=== PATIENT | female | born 1950 | race Caucasian/White ===

== ENCOUNTER 2020-02-16 11:25 | Outpatient (CLI) | payer MEDICARE, OTHER, SELFPAY ==
--- NOTE | 2020-02-16 11:34 | CT_ITS ---
WS: [id number] CT ABDOMEN AND PELVIS WITH CONTRAST HISTORY: GENERALIZED ABD PAIN TECHNIQUE: Imaging performed of the abdomen and pelvis with IV contrast. Single phase imaging of the abdomen. Coronal and sagittal reformats are submitted. All CT scans at [facility] use at least one of these dose optimization techniques: automated exposure control; mA and/or kV adjustment per patient size (includes targeted exams where dose is matched to clinical indication); or iterativ e reconstruction. IV CONTRAST: Omnipaque 300; 95 mL IV. Oral contrast: Yes. DLP: 1044.37 mGycm COMPARISON: None available. Lower thorax: Lung bases are clear. Heart is normal size. Small hiatal hernia. Distal esophagus conta ins oral contrast from reflux disease. Liver/biliary system: Normal size liver with numerous hepatic cysts of various sizes. The largest cys t towards the RIGHT diaphragmatic surface measures 4.7 x 3.6 cm. No bile duct dilatation. Normal port al vein. Gallbladder: Normal. No gallstones or wall thickening. No pericholecystic fluid. Pancreas: Normal. Spleen: Normal. Adrenal glands: Normal RIGHT adrenal gland. LEFT adrenal gland is not well visualized. Right kidney: Normal size with a few small to characterize hypodensities. No obstruction. Left kidney: Normal size with a few scattered hypodensities which are too small to characterize. Aorta: Mild atherosclerosis with no aneurysm. Lymphadenopathy: None. Free fluid: None. GI tract: The appendix is not identified. Mild diffuse fecal retention and constipation. Abdominal wall: Unremarkable abdominal wall. No hernia. Pelvis: Prior hysterectomy. No free fluid or adenopathy. Bones: L5 anterolisthesis by 9 mm and bilateral L5 pars defects. CT/CT abdomen pelvis w con* [id number] IMPRESSION: 1. No acute abdominal or pelvic abnormalities are identified. 2. Hepatic cysts. 3. Diffuse mild constipation. No free fluid or adenopathy. 4. L5 grade 2 spondylolisthesis and spondylolysis.
[2020-02-16] MEDS: iohexol 300 mg/mL 100 mL Btl IV (13:07)
[2020-02-16] MEDS: iohexol 300 mg/mL 50 mL Btl PO (13:08)
== END 2020-02-16 11:26 | disposition home or self-care (01) ==
LOC: RADWPI 11:33
PROVIDERS: Family Provider Family Medicine; PCP Family Medicine; Visit Provider Family Medicine
DX: R10.84 Generalized abdominal pain (principal); K76.89 Other specified diseases of liver; K59.00 Constipation, unspecified; M43.16 Spondylolisthesis, lumbar region; M47.816 Spondylosis without myelopathy or radiculopathy, lumbar region
CPT/HCPCS: 74177; Q9967

== ENCOUNTER 2020-03-31 09:52 | Outpatient (CLI) | payer MEDICARE, OTHER, SELFPAY ==
--- NOTE | 2020-03-31 10:00 | MM_ITS ---
WS: [id number] Bilateral screening digital mammogram, 03/31/2020 Clinical Data: SCREENING Comparison: 02/18/2016, 03/06/2013, 07/18/2011, 08/31/2009, 06/23/2008, 04/04/2007, 04/05/2006. Findings: The breast parenchymal pattern shows heterogeneous density No spiculated masses or clustered calcific ations are seen. There are no secondary signs of carcinoma. There are unchanged bilateral benign calc ifications. There are small lymph nodes in both axilla. MM/[place] [id number] Impression: 1. Negative bilateral mammogram unchanged. 2. Recommend annual screening mammograms. BIRADS: 1-Negative FOLLOW UP: 1 Year Follow-up The CAD food checkers and cashiers supervisor was used.
== END 2020-03-31 09:53 | disposition home or self-care (01) ==
LOC: RADSHAW 09:56
PROVIDERS: Family Provider Family Medicine; PCP Family Medicine; Visit Provider Family Medicine
DX: Z12.31 Encounter for screening mammogram for malignant neoplasm of breast (principal)
CPT/HCPCS: 77067

== ENCOUNTER → 2021-02-15 14:28 | Outpatient (BNVA) | payer MEDICARE, OTHER, SELFPAY | PROVIDERS: Family Provider Family Medicine; PCP Family Medicine; Visit Provider Family Medicine | DX: Z13.6 Encounter for screening for cardiovascular disorders (principal); Z12.11 Encounter for screening for malignant neoplasm of colon | CPT/HCPCS: 80053; 80061; 84443; 85025 ==

== ENCOUNTER → 2021-02-22 16:21 | Outpatient (BNVA) | payer MEDICARE, OTHER, SELFPAY | PROVIDERS: Family Provider Family Medicine; PCP Family Medicine; Visit Provider Nurse Practitioner Family | DX: Z20.822 Contact with and (suspected) exposure to COVID-19 (principal); J06.9 Acute upper respiratory infection, unspecified | CPT/HCPCS: 87635 ==

== ENCOUNTER 2021-03-23 13:51 | Outpatient (CLI) | payer MEDICARE, OTHER, SELFPAY ==
--- NOTE | 2021-03-23 14:15 | XR_ITS ---
WS: [id number] SCREENING DEXA SCAN [employer] CLINICAL INFORMATION: post menopausal COMPARISON: None. FINDINGS: The L1-L4 bone mineral density measures 0.843 g/cm2. This corresponds to a T score score of -2.8 and Z score of -0.9. Left femoral neck bone mineral density measures 0.796 g/cm2. This corresponds to a T score of -1.7 an d Z score of 0.0. Right femoral neck bone mineral density measures 0.811 g/cm2. This corresponds to a T score -1.6of an d Z score of 0.2. Mean femoral neck bone mineral density measures 0.803 g/cm2. This corresponds to a T score of -1.6 an d Z score of 0.1. XR/XR DEXA axial skeleton* [id number] IMPRESSION: Osteoporosis lumbar spine. Osteopenia femoral necks. Patient's FRAX calculated 10 year probability for major osteoporotic fracture i s 10.7 % and osteoporotic hip fracture is 2.0%.
== END 2021-03-23 13:52 | disposition home or self-care (01) ==
LOC: RADWPI 13:56
PROVIDERS: PCP Family Medicine; Visit Provider Family Medicine
DX: Z78.0 Asymptomatic menopausal state (principal); M81.0 Age-related osteoporosis without current pathological fracture; M85.88 Other specified disorders of bone density and structure, other site
CPT/HCPCS: 77080

== ENCOUNTER → 2021-04-11 08:18 | Outpatient (BNVA) | payer MEDICARE, OTHER, SELFPAY | PROVIDERS: PCP Family Medicine; Visit Provider Surgery | DX: Z11.52 Encounter for screening for COVID-19 (principal) | CPT/HCPCS: 87635 ==

== ENCOUNTER 2021-04-14 09:26 | Day surgery (SDC) | payer MEDICARE, OTHER, SELFPAY ==
--- NOTE | 2021-04-14 10:25 | ANES.PREANE2 ---
Pre-Anesthetic Assessment Pre-Anesthetic Assessment: Height/Weight: Height 1.59 m Preop Diagnosis: diagnostic Proposed Procedure: Operation Date: 04/14/21 11:00 Proposed Procedures p EGD 75902 K21.9(Not Applicable) - Marc Hastings MD s Colonoscopy 42722 Z12.11(Not Applicable) - Marc Hastings MD Was Beta Anabel taken within 24 hours: N/A Was Clonidine taken within 24 hours: N/A Social: Social History: No alcohol and No tobacco Exam: Pre-Anes Outpt Exam: alert, oriented x 3, clear to auscultation bilaterally and regular rate & rhythm Airway: Submandibular: WNL Cervical ROM: WNL MP: 2 Dentition: Full Pulmonary: Pulmonary: Asthma GI: GI: GERD Anesthetic Plan: ASA status: 2 Anesthesia: MAC Risk of > 500 ml blood loss (7ml/kg in children): No PFSH Anesthesia PFSH: Medical History (Updated 03/08/21 @ 18:06 by Marc Hastings MD) Bronchiectasis Followed by pulm in [place]. GERD (gastroesophageal reflux disease) Osteoporosis She was on Fosomax for 10 years Surgical History H/O eye surgery Bilateral - for narrow angle glaucoma H/O umbilical hernia repair H/O: hysterectomy Partial - not due to cancer History of tonsillectomy History of tubal ligation Family History Father Stroke Lung disease Cancer Family/Other Cancer stomach and colon Family/Other Cancer colon Family/Other Cancer esophageal Mother Dementia CHF (congestive heart failure) Hypothyroidism Family/Other Cancer breast cancer Family/Other Cancer colon Family/Other Cancer ovarian cancer Family/Other Rheumatic fever Social History Second hand smoke exposure: No (had been around smoke until 29) Alcohol intake: never Adopted: No Caregiver/support person: No Lives independently: Yes Household members: none Housing: House Marital status: / Number of children: 2 Highest education level completed: GED or Equivalent service: No Current occupational status: retired Pets and animals: No History of recent travel: No Sexually active: No Current gender identity: Female Special niraj needs: No Data Anesthesia Cardiac Studies: No Data to Display
[2021-04-14 10:32] VITALS: BMI 23.6
[2021-04-14] MEDS: sodium chloride 0.9% 1,000 ML 30 ML IV (10:44)
--- NOTE | 2021-04-14 11:17 | W.PM.OPSFHP ---
Same Day Surgery H&P Indication for Procedure/HPI DATE OF PROCEDURE: April 14, 2021 CHIEF COMPLAINT/INDICATIONFOR SURGICAL PROCEDURE: egd/colonoscopy PREOP DIAGNOSIS: diagnostic PLANNED PROCEDRUE: Operation Date: 04/14/21 11:00 Proposed Procedures p EGD 23026 K21.9(Not Applicable) - Marc Hastings MD s Colonoscopy 03511 Z12.11(Not Applicable) - Marc Hastings MD Medications/Allergies* Home Medications Medication Instructions Recorded Confirmed Type azithromycin 250 mg tablet See Rx Instructions PO DAILY 02/15/21 04/14/21 History fluticasone fur. 100 mcg-umeclid 1 inh INHALATION DAILY 02/15/21 04/14/21 History 62.5 mcg-vilant 25 mcg inhalat.powder ipratropium 0.5 mg-albuterol 3 mg 3 ml INHALATION QID PRN 02/15/21 04/14/21 History (2.5 mg base)/3 mL nebulization soln multivitamin 1 tab PO DAILY 02/15/21 04/14/21 History lansoprazole [Prevacid] 15 mg PO DAILY 04/14/21 04/14/21 History Allergies/Adverse Reactions Allergy/AdvReac Type Severity Reaction Status Date / Time naproxen [From Naprosyn] Allergy rash Verified 04/14/21 10:26 Sulfa (Sulfonamide Allergy rash Verified 04/14/21 10:26 Antibiotics) Current Medications: Generic Name Dose Route Start Last Admin Trade Name Freq PRN Reason Stop Dose Admin Sodium Chloride 1,000 mls @ 30 mls/hr 04/14/21 10:00 04/14/21 10:44 Sodium Chloride 0.9% IV 04/15/21 09:59 30 mls/hr .Q24H LORA Administration Pertinent History/Comorbid Conditions* Medical History (Updated 03/08/21 @ 18:06 by Marc Hastings MD) Bronchiectasis Followed by pulm in [place]. GERD (gastroesophageal reflux disease) Osteoporosis She was on Fosomax for 10 years Surgical History (Updated 02/15/21 @ 13:58 by Mary Sultana DO) H/O eye surgery Bilateral - for narrow angle glaucoma H/O umbilical hernia repair H/O: hysterectomy Partial - not due to cancer History of tonsillectomy History of tubal ligation Family History (Updated 10/19/21 @ 13:37 by Lisa Milan LPN) Family/Other Family/Other Father CHF (congestive heart failure) Mother Dementia Mother Hypothyroidism Mother Rheumatic fever Family/Other Lung disease Father Cancer Father Family/Other stomach and colon Family/Other colon Family/Other esophageal Family/Other breast cancer Family/Other colon Family/Other ovarian cancer Stroke Father Social History Second hand smoke exposure: No (had been around smoke until 29) Alcohol intake: never Adopted: No Caregiver/support person: No Lives independently: Yes Household members: none Housing: House Marital status: / Number of children: 2 Highest education level completed: GED or Equivalent service: No Current occupational status: retired Pets and animals: No History of recent travel: No Sexually active: No Current gender identity: Female Special niraj needs: No Pertinent Exam Findings alert, oriented x 3 and regular rate & rhythm Recommendations Surgery/Procedure today Coding Level of Care Code Acute Professor Of Biblical Studies for Bouchra Anderson
[2021-04-14 11:47] VITALS: BP 85/52; PULSE 61; RESP 18; TEMP 36.1; O2SAT 97
[2021-04-14 12:05] VITALS: BP 101/69; PULSE 65; RESP 18; O2SAT 98
--- NOTE | 2021-04-14 14:11 | ANE.PACU2 ---
Inpatient post-anesthesia follow up: Airway intact: Yes Vital signs: Temperature 97 F Pulse Rate 65 Respiratory Rate 18 Blood Pressure 101/69 Pulse Oximetry 98 Oxygen Delivery Me thod Room Air Oxygen Flow Rate 3 Fraction of Inspir ed Oxygen Hydration adequate: Yes Nausea and vomiting: No Pain level: 1 Mental status: Baseline
== END 2021-04-14 12:37 | disposition home or self-care (01) ==
PROVIDERS: PCP Family Medicine; Visit Provider Surgery
PROC: 0DJ08ZZ Inspection of Upper Intestinal Tract, Via Natural or Artificial Opening Endoscopic (ICD-10-PCS; CPT 43235; principal; 2021-04-14 11:00)
PROC: 0DJD8ZZ Inspection of Lower Intestinal Tract, Via Natural or Artificial Opening Endoscopic (ICD-10-PCS; CPT 45378; 2021-04-14 11:00)
DX: Z12.11 Encounter for screening for malignant neoplasm of colon (principal); K21.9 Gastro-esophageal reflux disease without esophagitis; K57.30 Diverticulosis of large intestine without perforation or abscess without bleeding; K64.8 Other hemorrhoids; M81.0 Age-related osteoporosis without current pathological fracture; Z82.49 Family history of ischemic heart disease and other diseases of the circulatory system; Z82.3 Family history of stroke; J45.909 Unspecified asthma, uncomplicated
CPT/HCPCS: 43239; 88305; 96360; G0121; J2704; J7030

== ENCOUNTER 2021-05-31 14:42 | Outpatient (CLI) | payer MEDICARE, OTHER, SELFPAY ==
--- NOTE | 2021-05-31 14:53 | MM_ITS ---
WS: [id number] SCREENING DIGITAL MAMMOGRAM WITH CAD HISTORY: SCREENING COMPARISON: 07/18/2011, 03/31/2020 and 02/18/2016 Bilateral CC and MLO views submitted. Computer aided detection analyzed. Breast composition: The breasts are heterogeneously dense, which may obscure small masses. Mild archi tectural distortion in the anterior medial RIGHT breast seen on the CC projection. Not definitely see n on the lateral projection. There are dense calcifications within each breast. MM/[place] [id number] IMPRESSION: BI-RADS: 0-Incomplete: Need additional imaging evaluation FOLLOW UP: Need Additional Imaging RIGHT breast: Spot compression views (CC and MLO). True ML. Ultrasound to follo w if abnormality persists.
== END 2021-05-31 14:43 | disposition home or self-care (01) ==
LOC: RADSHAW 14:53
PROVIDERS: PCP Family Medicine; Visit Provider Family Medicine
DX: Z12.31 Encounter for screening mammogram for malignant neoplasm of breast (principal)
CPT/HCPCS: 77067

== ENCOUNTER 2021-06-21 08:18 | Outpatient (CLI) | payer MEDICARE, OTHER, SELFPAY ==
--- NOTE | 2021-06-21 08:35 | US_ITS ---
WS: [id number] ADDITIONAL VIEWS RIGHT BREAST RIGHT breast ultrasound, limited. HISTORY: ABNORMAL MAMMO COMPARISON: 05/31/2021, 2019, 02/18/2016 Compression views right CC and MLO projection. True ML also submitted. The asymmetry and architectural distortion in the anterior RIGHT breast improves with better compress ion. There are benign calcifications present. The fibroglandular tissue is dense in the anterior tamera st. Ultrasound will be performed to confirm there is no underlying abnormality. RIGHT breast ultrasound, limited. No mass or distortion. No solid or cystic mass. There is a benign calcification with shadowing noted at 12:00. US/US breast RT limited* [id number] IMPRESSION: BI-RADS: 2-Benign FOLLOW-UP: 1 Year Follow-up
== END 2021-06-21 08:19 | disposition home or self-care (01) ==
LOC: RADSHAW 08:26
PROVIDERS: PCP Family Medicine; Visit Provider Family Medicine
DX: R92.8 Other abnormal and inconclusive findings on diagnostic imaging of breast (principal)
CPT/HCPCS: 76642; 77065

== ENCOUNTER → 2022-02-17 15:16 | Outpatient (BNVA) | payer MEDICARE, OTHER, SELFPAY | PROVIDERS: PCP Family Medicine; Visit Provider Family Medicine | DX: R53.83 Other fatigue (principal); F32.1 Major depressive disorder, single episode, moderate; Z13.6 Encounter for screening for cardiovascular disorders | CPT/HCPCS: 80053; 80061; 84443; 85025 ==

== ENCOUNTER → 2022-05-09 14:10 | Outpatient (BNVA) | payer MEDICARE, OTHER, SELFPAY | PROVIDERS: PCP Family Medicine; Visit Provider Nurse Practitioner | DX: N39.0 Urinary tract infection, site not specified (principal); R35.0 Frequency of micturition | CPT/HCPCS: 81000 ==

== ENCOUNTER 2022-06-28 10:34 | Outpatient (CLI) | payer MEDICARE, OTHER, SELFPAY ==
--- NOTE | 2022-06-28 10:44 | MM_ITS ---
WS: [id number] BILATERAL SCREENING DIGITAL TOMOSYNTHESIS MAMMOGRAM WITH CAD HISTORY: SCREENING COMPARISON: 06/21/2021, 05/31/2021, 03/31/2020 Bilateral CC and MLO views with tomosynthesis and synthetic mammography submitted. Computer aided det ection analyzed. Breast composition: The breasts are heterogeneously dense, which may obscure small masses. No suspici ous masses, microcalcifications or architectural distortion. Dense coarse calcifications within each breast. MM/[place] [id number] IMPRESSION: BI-RADS: 2-Benign FOLLOW UP: 1 Year Follow-up
== END 2022-06-28 10:35 | disposition home or self-care (01) ==
LOC: RAD 10:39
PROVIDERS: PCP Family Medicine; Visit Provider Family Medicine
DX: Z12.31 Encounter for screening mammogram for malignant neoplasm of breast (principal)
CPT/HCPCS: 77063; 77067

== ENCOUNTER → 2022-07-17 10:08 | Outpatient (BNVA) | payer MEDICARE, OTHER, SELFPAY | PROVIDERS: PCP Family Medicine; Visit Provider Internal Medicine Pulmonary Disease | DX: J47.9 Bronchiectasis, uncomplicated (principal); B44.81 Allergic bronchopulmonary aspergillosis; R05.8 Other specified cough | CPT/HCPCS: 71046; 99204 ==

== ENCOUNTER 2022-07-18 09:41 | Outpatient (CLI) | payer MEDICARE, OTHER, SELFPAY | END 2022-07-18 09:42 | disposition home or self-care (01) | LOC: LAB 09:44 | PROVIDERS: PCP Family Medicine; Visit Provider Internal Medicine Pulmonary Disease | DX: R05.8 Other specified cough (principal) | CPT/HCPCS: 87070 ==

== ENCOUNTER 2022-07-18 12:00 | Outpatient (CLI) | payer MEDICARE, OTHER, SELFPAY ==
--- NOTE | 2022-07-18 12:12 | XR_ITS ---
WS: [id number] EXAMINATION: XR hand LT min 3V* [id number] REASON FOR EXAM: nodule on palmar surface of left hand COMPARISON: None available. ORDER DATE: 07/18/2022 12:12 PM FINDINGS: There is generalized joint space narrowing. Additionally there may be some chronic degenerative later al subluxation at the first carpometacarpal articulation This indicates degenerative joint and-or cho ndral changes. Juxta articular marginal osteophytes are present. There are no acute fractures or dis locations. A soft tissue nodule cannot be clearly defined with the history suggests the possibility o f Dupuytren's contracture which is a clinical/physical examination diagnosis. XR/XR hand LT min 3V* [id number] IMPRESSION: DIFFUSE OSTEOARTHRITIS.
== END 2022-07-18 12:01 | disposition home or self-care (01) ==
LOC: RAD 12:04
PROVIDERS: PCP Family Medicine; Visit Provider Family Medicine
DX: R22.32 Localized swelling, mass and lump, left upper limb (principal); M19.042 Primary osteoarthritis, left hand
CPT/HCPCS: 73130

== ENCOUNTER 2022-08-10 12:43 | Outpatient (CLI) | payer MEDICARE, OTHER, SELFPAY ==
[2022-08-10 13:03] VITALS: PULSE 67; RESP 18; O2SAT 98
[2022-08-10] MEDS: albuterol 2.5 mg/3 mL Neb INHALATION (13:03)
[2022-08-10 13:08] VITALS: PULSE 73
[2022-08-10 13:25] VITALS: BP 117/62; BP 127/77
== END 2022-08-10 12:44 | disposition home or self-care (01) ==
LOC: RT 12:45
PROVIDERS: PCP Family Medicine; Visit Provider Internal Medicine Pulmonary Disease
DX: J47.9 Bronchiectasis, uncomplicated (principal)
CPT/HCPCS: 94060; 94618; 94726; 94729; J7613

== ENCOUNTER → 2022-08-14 10:45 | Outpatient (BNVA) | payer MEDICARE, OTHER, SELFPAY | PROVIDERS: PCP Family Medicine; Referring Provider Family Medicine; Visit Provider Student in an Organized Health Care Education/Training Program | DX: R22.32 Localized swelling, mass and lump, left upper limb (principal) | CPT/HCPCS: 99203 ==

== ENCOUNTER → 2022-08-28 14:53 | Outpatient (BNVA) | payer MEDICARE, OTHER, SELFPAY | PROVIDERS: PCP Family Medicine; Visit Provider Nurse Practitioner Family | DX: L81.4 Other melanin hyperpigmentation (principal); L57.8 Other skin changes due to chronic exposure to nonionizing radiation; S90.121A Contusion of right lesser toe(s) without damage to nail, initial encounter; X58.XXXA Exposure to other specified factors, initial encounter; D36.13 Benign neoplasm of peripheral nerves and autonomic nervous system of lower limb, including hip | CPT/HCPCS: 99213 ==

== ENCOUNTER → 2022-08-29 10:32 | Outpatient (BNVA) | payer MEDICARE, OTHER, SELFPAY | PROVIDERS: PCP Family Medicine; Visit Provider Surgery | DX: K41.90 Unilateral femoral hernia, without obstruction or gangrene, not specified as recurrent (principal) | CPT/HCPCS: 99203 ==

== ENCOUNTER → 2022-09-18 09:14 | Outpatient (BNVA) | payer MEDICARE, OTHER, SELFPAY | PROVIDERS: PCP Family Medicine; Visit Provider Internal Medicine Pulmonary Disease | DX: B44.81 Allergic bronchopulmonary aspergillosis (principal); R05.8 Other specified cough; J47.9 Bronchiectasis, uncomplicated; J30.2 Other seasonal allergic rhinitis | CPT/HCPCS: 99214 ==

== ENCOUNTER 2022-10-02 07:15 | Day surgery (SDC) | payer MEDICARE, OTHER, SELFPAY ==
[2022-09-29 08:15] VITALS: BMI 23.7
[2022-10-02] VITALS (17 sets, daily range): BP systolic 106–140; BP diastolic 58–74; PULSE 62–90; RESP 12–20; TEMP 36.2–36.7; O2SAT 91–100
[2022-10-02] MEDS: sodium chloride 0.9% 1,000 ML 30 ML IV (08:19)
--- NOTE | 2022-10-02 08:21 | ECG_ITS ---
[facility] Test Date: 2022-10-02 Pat Name: Ana Jama Department: Room: Gender: Female Saddle Cutter: : 1950 Requested By: Akiko Mann Order Number: [id number] Harlodo MD: Eze Rao M.D. Measurements Intervals [place] Rate: 53 P: 64 MD: 162 QRS: -28 QRSD: 94 T: 6 QT: 432 QTc: 409 Interpretive Statements SINUS BRADYCARDIA BORDERLINE LEFT AXIS DEVIATION [QRS AXIS < -20] No previous ECG available for comparison Electronically Signed On 10-02-2022 16:46:12 CDT by Eze Rao M.D. [email or web address], [id number]
--- NOTE | 2022-10-02 08:32 | P.HP_ITS ---
Providers/Chief Complaint Primary Care Provider: Mary Sultana DO Chief Complaint: 11154 K46.9 History of Present Illness Ana Jama is a 72 year old female here for laparoscopic repair of left inguinal hernia with mesh Medications/Allergies Home Medications Medication Instructions Recorded Confirmed Last Taken Type fluticasone fur. 100 mcg-umeclid 1 inh inhalation DAILY 02/15/21 10/02/22 09/30/22 History 62.5 mcg-vilant 25 mcg inhalat.powder (Trelegy Ellipta) multivitamin 1 tab PO DAILY 02/15/21 09/29/22 04/12/21 History cholecalciferol (vitamin D3) 125 125 mcg PO DAILY 30 days #30 caps 03/30/21 09/29/22 10/01/22 Rx mcg (5,000 unit) capsule triamcinolone acetonide 0.1 % 1 applic topical BID #80 grams 07/08/21 09/29/22 Unknown Rx topical ointment omeprazole 40 mg capsule,delayed See Rx Instructions .Route 07/05/22 09/29/22 Unknown Rx release .COMPLEX #90 caps albuterol sulfate 2.5 mg/3 mL 2.5 mg inhalation Q6H PRN 07/17/22 10/02/22 09/06/22 History (0.083 %) solution for nebulization shortness of breath or wheezing albuterol sulfate 90 mcg/actuation 2 puff inhalation Q6H PRN 07/17/22 09/29/22 10/02/22 06:00 History aerosol inhaler shortness of breath or wheezing azithromycin 250 mg tablet See Rx Instructions .Route .COMPLEX 07/17/22 09/29/22 09/25/22 History calcium carbonate 500 mg calcium 1,000 mg PO DAILY 07/17/22 09/29/22 10/01/22 History (1,250 mg) tablet (Calcium 500) cetirizine 10 mg tablet 10 mg PO DAILY PRN Allergy Symptoms 07/17/22 10/02/22 09/29/22 History sodium chloride 3 % for 4 ml inhalation BID #240 mL 07/17/22 09/29/22 Unknown Rx nebulization Allergies Allergy/AdvReac Type Severity Reaction Status Date / Time naproxen [From Naprosyn] Allergy rash Verified 09/18/22 09:19 Sulfa (Sulfonamide Allergy rash Verified 09/18/22 09:19 Antibiotics) PFSH Acute PFSH: Medical History ABPA (allergic bronchopulmonary aspergillosis) Bronchiectasis Followed by pulm in [place]. Family history of melanoma GERD (gastroesophageal reflux disease) Osteoporosis She was on Fosomax for 10 years Surgical History H/O esophagogastroduodenoscopy (04/14/21) H/O eye surgery Bilateral - for narrow angle glaucoma H/O umbilical hernia repair H/O: hysterectomy Partial - not due to cancer History of tonsillectomy History of tubal ligation Status post colonoscopy (04/14/21) Family History Father Stroke Lung disease Cancer Family/Other Cancer stomach and colon Family/Other Cancer colon Family/Other Cancer esophageal Mother Dementia CHF (congestive heart failure) Hypothyroidism Family/Other Cancer breast cancer Family/Other Cancer colon Family/Other Cancer ovarian cancer Family/Other Rheumatic fever Social History Smoking and tobacco status: never smoked Second hand smoke exposure: No (had been around smoke until 29) Alcohol intake: never Substance/Drug Use: never Adopted: No Caregiver/support person: No Lives independently: Yes Household members: none Housing: House Marital status: / Number of children: 2 Highest education level completed: GED or Equivalent service: No Current occupational status: retired Pets and animals: No Sexually active: No Do you think of yourself as: Straight/Heterosexual Current gender identity: Female Special niraj needs: No Vitals/I&O/Wt Last Vital Signs Temp 98.1 F 10/02/22 07:45 Pulse 70 10/02/22 07:45 Resp 18 10/02/22 07:45 BP 106/67 10/02/22 07:45 Pulse Ox 95 10/02/22 07:45 O2 Del Method Room Air 10/02/22 07:48 A&P Assessment and plan (1) Left femoral hernia without obstruction or gangrene: Plan Laparoscopic repair of left inguinal hernia with mesh Attestations Medical Necessity Statement*: Home Coding Level of Care Code Acute Code for Chg Fwd Diagnoses Left femoral hernia without obstruction or gangrene K41.90
--- NOTE | 2022-10-02 08:52 | ANES.PREANE2 ---
Pre-Anesthetic Assessment Height/Weight: Height 1.6 m Weight 60.781 kg Temp Pulse Resp BP Pulse Ox O2 Del Method 98.1 F 70 18 106/67 95 Room Air 10/02/22 07:45 10/02/22 07:45 10/02/22 07:45 10/02/22 07:45 10/02/22 07:45 10/02/22 07:48 Operation Date: 10/02/22 08:50 Proposed Procedures p lap left inguinal hernia with mesh 20338, K46.9(Left) - Mark Chappell DO Familial anesthetic complications: None Was Beta Anabel taken within 24 hours: N/A Was Clonidine taken within 24 hours: N/A Last intake: Intake Last Liquid Date 10/01/22 Last Liquid Time 21:30 Last Solid Date 10/01/22 Last Solid Time 22:00 Social No alcohol and No tobacco Exam alert, oriented x 3, clear to auscultation bilaterally and regular rate & rhythm Airway Mallampati: Class III Dentition: other (bad dentition (they break easily)) Pulmonary Asthma (mild) bronchiectasis (ABPA) GI Gastroesophageal Reflux Disease Anesthetic Plan ASA status: 3 Anesthesia: General Risk of > 500 ml blood loss (7ml/kg in children): No Medications/Allergies Home Medications Medication Instructions Recorded Confirmed Last Taken Type fluticasone fur. 100 mcg-umeclid 1 inh inhalation DAILY 02/15/21 10/02/22 09/30/22 History 62.5 mcg-vilant 25 mcg inhalat.powder (Trelegy Ellipta) multivitamin 1 tab PO DAILY 02/15/21 09/29/22 04/12/21 History cholecalciferol (vitamin D3) 125 125 mcg PO DAILY 30 days #30 caps 03/30/21 09/29/22 10/01/22 Rx mcg (5,000 unit) capsule triamcinolone acetonide 0.1 % 1 applic topical BID #80 grams 07/08/21 09/29/22 Unknown Rx topical ointment omeprazole 40 mg capsule,delayed See Rx Instructions .Route 07/05/22 09/29/22 Unknown Rx release .COMPLEX #90 caps albuterol sulfate 2.5 mg/3 mL 2.5 mg inhalation Q6H PRN 07/17/22 10/02/22 09/06/22 History (0.083 %) solution for nebulization shortness of breath or wheezing albuterol sulfate 90 mcg/actuation 2 puff inhalation Q6H PRN 07/17/22 09/29/22 10/02/22 06:00 History aerosol inhaler shortness of breath or wheezing azithromycin 250 mg tablet See Rx Instructions .Route .COMPLEX 07/17/22 09/29/22 09/25/22 History calcium carbonate 500 mg calcium 1,000 mg PO DAILY 07/17/22 09/29/22 10/01/22 History (1,250 mg) tablet (Calcium 500) cetirizine 10 mg tablet 10 mg PO DAILY PRN Allergy Symptoms 07/17/22 10/02/22 09/29/22 History sodium chloride 3 % for 4 ml inhalation BID #240 mL 07/17/22 09/29/22 Unknown Rx nebulization Allergies Allergy/AdvReac Type Severity Reaction Status Date / Time naproxen [From Naprosyn] Allergy rash Verified 09/18/22 09:19 Sulfa (Sulfonamide Allergy rash Verified 09/18/22 09:19 Antibiotics) Current Medications Generic Name Dose Route Start Last Admin Trade Name Freq PRN Reason Stop Dose Admin Sodium Chloride 1,000 mls @ 30 mls/hr 10/02/22 07:45 10/02/22 08:19 Sodium Chloride 0.9% IV 10/03/22 07:44 30 mls/hr .Q24H LORA Administration PFSH Anesthesia Medical History ABPA (allergic bronchopulmonary aspergillosis) Bronchiectasis Followed by pulm in [place]. Family history of melanoma GERD (gastroesophageal reflux disease) Osteoporosis She was on Fosomax for 10 years Surgical History H/O esophagogastroduodenoscopy (04/14/21) H/O eye surgery Bilateral - for narrow angle glaucoma H/O umbilical hernia repair H/O: hysterectomy Partial - not due to cancer History of tonsillectomy History of tubal ligation Status post colonoscopy (04/14/21) Family History Father Stroke Lung disease Cancer Family/Other Cancer stomach and colon Family/Other Cancer colon Family/Other Cancer esophageal Mother Dementia CHF (congestive heart failure) Hypothyroidism Family/Other Cancer breast cancer Family/Other Cancer colon Family/Other Cancer ovarian cancer Family/Other Rheumatic fever Social History Smoking and tobacco status: never smoked Second hand smoke exposure: No (had been around smoke until 29) Alcohol intake: never Substance/Drug Use: never Adopted: No Caregiver/support person: No Lives independently: Yes Household members: none Housing: House Marital status: / Number of children: 2 Highest education level completed: GED or Equivalent service: No Current occupational status: retired Pets and animals: No Sexually active: No Do you think of yourself as: Straight/Heterosexual Current gender identity: Female Special niraj needs: No Data Anesthesia Cardiac Studies: No Data to Display
[2022-10-02] MEDS: ceFAZolin 2,000 MG in sodium chloride 0.9% (plus) 50 ML 100 MG IV (08:59)
[2022-10-02] MEDS: lidocaine-epi 2% 20 mL INJ 6 ML INJECTION (09:40)
--- NOTE | 2022-10-02 09:49 | P.OP_ITS ---
Operative Report Date of procedure: October 02, 2022 Pre-op diagnosis: Left femoral hernia Post-op diagnosis: Bilateral femoral hernias Procedure done: Laparoscopic (TEPP) repair of bilateral femoral hernias with mesh Implants: Left and right large 3D max Bard meshes Specimens removed/disposition: None Surgeon: Dr. Mark Chappell DO Anesthesia: General Estimated blood loss (mL): 5 Complications: None apparent Brief History: This very pleasant 72-year-old female who presented to my office with a left femoral hernia. In the preoperative area she told me she has new onset pain in her right groin as well. Laparoscopic repair of left inguinal hernia with mesh, possible bilateral, was indicated. The risk and benefits were explained and documented. Procedure: Patient was wheeled into the operative room and placed on the OR table in a s upine position. Abdomen was inspected prepped and draped in usual sterile fashion. Time-out was performed and all present were in agreement. A 15 blade scalpel was used to make 1.2 centimeter incision infraumbilically. Combination of sharp and blunt dissection was performed down to the anterior rectus sheath which was opened sharply. The dissecting balloon was then inserted into the space of Retzius and blown up. We put the camera into the port and identified that we were in the correct space. I then placed 2 5 millimeter trocars suprapubically in the midline. I then used endokitners to bluntly dissect in the space of Retzius out laterally. A femoral hernia was identified on the left. Blunt dissection was performed to dissect down the hernia sac. A large left inguinal mesh was then placed into the space of Retzius. The mesh was unrolled and tacked once medially at the pubic bone. The mesh laid out nicely over the spermatic cord. I then explored the right side and found a similar femoral hernia on the right. Blunt dissection was performed to dissect down the hernia sac. A large right inguinal mesh was then placed into the space of Retzius. The mesh was unrolled and tacked once medially at the pubic bone. The mesh laid out nicely over the spermatic cord. I watched the hernia sacs remain in place as insufflation was removed. Incisions were closed with 4-0 Monocryl in a subcuticular interrupted fashion. Skin glue was applied. Patient tolerated the procedure well.
[2022-10-02] MEDS: fentaNYL 50 mcg/mL INJ 2mL IVP ×2 (10:20→10:29)
[2022-10-02] MEDS: HYDROmorphone 1 mg/mL INJ 1 mL 0.5 MG IVP (10:40)
[2022-10-02] MEDS: HYDROcodone-acetaminophen 5-325 mg Tablet 1 TAB PO (12:05)
--- NOTE | 2022-10-02 13:27 | SUR.PHASEII ---
surgical sites clean and intact. no redness or drainage.
--- NOTE | 2022-10-02 13:28 | ANE.PACU2 ---
Inpatient post-anesthesia follow up: Airway intact: Yes Vital signs: Temperature 98.1 F Pulse Rate 80 Respiratory Rate 16 Blood Pressure 120/66 Pulse Oximetry 93 Oxygen Delivery Me thod Room Air Oxygen Flow Rate 6 Fraction of Inspir ed Oxygen Hydration adequate: Yes Nausea and vomiting: Yes Pain level: 1 Mental status: Baseline
== END 2022-10-02 13:10 | disposition home or self-care (01) ==
PROVIDERS: PCP Family Medicine; Visit Provider Surgery
PROC: (CPT 49650; principal; 2022-10-02 08:40)
DX: K41.20 Bilateral femoral hernia, without obstruction or gangrene, not specified as recurrent (principal); K21.9 Gastro-esophageal reflux disease without esophagitis; R00.1 Bradycardia, unspecified; J45.909 Unspecified asthma, uncomplicated
CPT/HCPCS: 49659; 51702; 93005; C1781; J0330; J0690; J1100; J1170; J2405; J2704; J3010; J3490; J7030

== ENCOUNTER → 2022-10-09 15:11 | Outpatient (BNVA) | payer MEDICARE, OTHER, SELFPAY | PROVIDERS: PCP Family Medicine; Visit Provider Family Medicine | DX: B44.81 Allergic bronchopulmonary aspergillosis (principal); J47.9 Bronchiectasis, uncomplicated; R05.8 Other specified cough | CPT/HCPCS: 87070; 87205 ==

== ENCOUNTER → 2022-10-17 08:17 | Outpatient (BNVA) | payer MEDICARE, OTHER, SELFPAY | PROVIDERS: PCP Family Medicine; Visit Provider Surgery | DX: Z98.890 Other specified postprocedural states (principal); Z87.19 Personal history of other diseases of the digestive system | CPT/HCPCS: 99024 ==

== ENCOUNTER → 2022-10-25 09:40 | Outpatient (BNVA) | payer MEDICARE, OTHER, SELFPAY | PROVIDERS: PCP Family Medicine; Visit Provider Dermatology | DX: D17.24 Benign lipomatous neoplasm of skin and subcutaneous tissue of left leg (principal) | CPT/HCPCS: 11406; 12032 ==

== ENCOUNTER → 2022-11-07 09:10 | Outpatient (BNVA) | payer MEDICARE, OTHER, SELFPAY | PROVIDERS: PCP Family Medicine; Visit Provider Dermatology | DX: Z48.02 Encounter for removal of sutures (principal) | CPT/HCPCS: 99024; 99212 ==

== ENCOUNTER → 2023-01-09 12:29 | Outpatient (BNVA) | payer MEDICARE, OTHER, SELFPAY | PROVIDERS: PCP Family Medicine; Visit Provider Family Medicine | DX: Z13.6 Encounter for screening for cardiovascular disorders (principal); R53.83 Other fatigue; K21.9 Gastro-esophageal reflux disease without esophagitis; R35.0 Frequency of micturition | CPT/HCPCS: 80053; 80061; 81000; 84443; 85025; 87086 ==

== ENCOUNTER → 2023-01-11 12:58 | Outpatient (BNVA) | payer MEDICARE, OTHER, SELFPAY | PROVIDERS: PCP Family Medicine; Visit Provider Dermatology | DX: L57.0 Actinic keratosis (principal); S90.121A Contusion of right lesser toe(s) without damage to nail, initial encounter; L82.0 Inflamed seborrheic keratosis; Y99.9 Unspecified external cause status | CPT/HCPCS: 17000; 17110; 99213 ==

== ENCOUNTER → 2023-03-21 09:11 | Outpatient (BNVA) | payer MEDICARE, OTHER, SELFPAY | PROVIDERS: PCP Family Medicine; Visit Provider Internal Medicine Pulmonary Disease | DX: B44.81 Allergic bronchopulmonary aspergillosis (principal); R05.8 Other specified cough; J47.9 Bronchiectasis, uncomplicated | CPT/HCPCS: 99214 ==

== ENCOUNTER 2023-03-28 13:38 | Outpatient (CLI) | payer MEDICARE, OTHER, SELFPAY ==
--- NOTE | 2023-03-28 15:00 | CT_ITS ---
WS: [id number] CT chest wo con [id number] HISTORY: f/u TECHNIQUE: Axial imaging performed through the thorax. Coronal and sagittal reformats are submitted. All CT scans at [facility] use at least one of these dose optimization techniques: automated exposure control; mA and/or kV adjustment per patient size (includes targeted exams where dose is mat ched to clinical indication); or iterative reconstruction. CONTRAST: None DLP: 215.03 mGy.cm COMPARISON: 12/01/2014 Lungs and central airway: Mild pulmonary hyperexpansion. No significant adverse change or improvement involving the lung since 2015. Continued areas of nodularity, tree-in-bud airspace disease and subse gmental atelectasis and bronchiectasis. No new or enlarging mass or nodule. Tubular bronchiectasis is most significant in the medial RIGHT upper lobe and at the lingula along with chronic atelectasis. Pleura: Normal. No pleural effusion. Heart and pericardium: Normal size heart with no pericardial effusion. Mediastinum and ariana: No mediastinum or hilar adenopathy. Vessels: Moderate atherosclerosis aorta. There is mild ectasia of the aorta. Normal sized pulmonary a rtery. Chest wall and lower neck: No soft tissue masses. Upper abdomen: Numerous low-attenuation masses noted within the spleen. These have increased in size since 2015. The largest towards the RIGHT diaphragm measures 5.3 x 3.6 cm and is most consistent with a cyst. Osseous structures: Thoracic curvature and scoliosis. No bone destruction. IMPRESSION: 1. No significant progression or improvement in the areas of bronchiectasis, tree-in-bud airspace dis ease and subsegmental atelectasis since 12/01/2014. 2. No mediastinal or hilar adenopathy. 3. Numerous cystic masses within the liver. These were previously described but have increased in siz e and number.
== END 2023-03-28 13:39 | disposition home or self-care (01) ==
LOC: RAD 13:39
PROVIDERS: PCP Family Medicine; Visit Provider Internal Medicine Pulmonary Disease
DX: J47.9 Bronchiectasis, uncomplicated (principal); J98.11 Atelectasis; R05.8 Other specified cough
CPT/HCPCS: 71250

== ENCOUNTER 2023-04-18 06:53 | Outpatient (CLI) | payer MEDICARE, OTHER, SELFPAY ==
--- NOTE | 2023-04-18 07:15 | US_ITS ---
WS: [id number] RIGHT UPPER QUADRANT ULTRASOUND HISTORY: liver cyst COMPARISON: 03/28/2023 Liver: 11.7 cm in length. Several simple appearing cysts are noted within the liver. The largest towa rds the RIGHT diaphragmatic surface measures 3.4 x 3.8 x 5.5 cm. No solid masses are identified. No b ile duct dilatation. Portal Vein: Normal hepatopetal flow with monophasic waveform. Gallbladder: Normally distended gallbladder with no stones or wall thickening. CBD: 0.2 cm Pancreas: Normal size and echogenicity. Right kidney: 9.6 cm in length. Normal size and echogenicity. No hydronephrosis or mass. Aorta and IVC: Unremarkable abdominal aorta and IVC. No ascites. IMPRESSION: 1. Numerous hepatic cysts. These are simple cyst with no solid mass. The largest cyst towards the hai phragmatic surface measures 3.4 x 3.8 x 5.5 cm. 2. Negative gallbladder.
== END 2023-04-18 06:54 | disposition home or self-care (01) ==
LOC: RAD 06:53
PROVIDERS: PCP Family Medicine; Visit Provider Family Medicine
DX: K76.89 Other specified diseases of liver (principal)
CPT/HCPCS: 76705

== ENCOUNTER → 2023-06-13 09:50 | Outpatient (BNVA) | payer MEDICARE, OTHER, SELFPAY | PROVIDERS: PCP Family Medicine; Visit Provider Nurse Practitioner Family | DX: L57.0 Actinic keratosis (principal); S90.121A Contusion of right lesser toe(s) without damage to nail, initial encounter; X58.XXXA Exposure to other specified factors, initial encounter; D22.4 Melanocytic nevi of scalp and neck; L81.4 Other melanin hyperpigmentation; L57.8 Other skin changes due to chronic exposure to nonionizing radiation | CPT/HCPCS: 17000; 99213 ==

== ENCOUNTER 2023-07-26 08:42 | Outpatient (CLI) | payer MEDICARE, OTHER, SELFPAY ==
--- NOTE | 2023-07-26 09:00 | MM_ITS ---
WS: [id number] VIEWS: MLO and CC views both breasts. 3D digital tomosynthesis is also included in this exam. Comparison made with prior exam of 06/05/2006, 06/23/2008, 08/31/2009, 07/18/2011, 03/06/2013, 02/18/2016, 1 06/01/2019, 05/31/2021, 06/28/2022.. Findings: There was no sign of mass, architectural distortion or suspicious calcification in either breast. The breasts are extremely dense which lowers the sensitivity of mammography. Impression: MM/[place] [id number] BI-RADS: 2-Benign finding. FOLLOW-UP: 1 Year Follow-up This mammogram was also analyzed by the Computer Aided Detection System R2 Imag e Solution Design Engineer.
== END 2023-07-26 08:43 | disposition home or self-care (01) ==
LOC: RAD 08:43
PROVIDERS: PCP Family Medicine; Visit Provider Family Medicine
DX: Z12.31 Encounter for screening mammogram for malignant neoplasm of breast (principal)
CPT/HCPCS: 77063; 77067

== ENCOUNTER 2023-08-21 14:03 | Outpatient (RCR) | payer MEDICARE, OTHER, SELFPAY | END 2023-08-28 23:59 | disposition home or self-care (01) | LOC: SPT 14:03 | PROVIDERS: PCP Family Medicine; Visit Provider Family Medicine | DX: M75.41 Impingement syndrome of right shoulder (principal) | CPT/HCPCS: 97110; 97161 ==

== ENCOUNTER 2023-08-29 06:00 | Outpatient (RCR) | payer MEDICARE, OTHER, SELFPAY | END 2023-09-25 23:59 | disposition home or self-care (01) | LOC: SPT 06:00 | PROVIDERS: PCP Family Medicine; Visit Provider Family Medicine | DX: M75.41 Impingement syndrome of right shoulder (principal) | CPT/HCPCS: 97110 ==

== ENCOUNTER → 2023-10-02 13:13 | Outpatient (BNVA) | payer MEDICARE, OTHER, SELFPAY | PROVIDERS: PCP Family Medicine; Visit Provider Internal Medicine Pulmonary Disease | DX: B44.81 Allergic bronchopulmonary aspergillosis (principal); R05.8 Other specified cough; J47.1 Bronchiectasis with (acute) exacerbation | CPT/HCPCS: 99214 ==

== ENCOUNTER → 2023-10-30 10:59 | Outpatient (BNVA) | payer MEDICARE, OTHER, SELFPAY | PROVIDERS: PCP Family Medicine; Visit Provider Nurse Practitioner Family | DX: L21.8 Other seborrheic dermatitis (principal); D22.4 Melanocytic nevi of scalp and neck; L81.4 Other melanin hyperpigmentation; L57.8 Other skin changes due to chronic exposure to nonionizing radiation; Z80.8 Family history of malignant neoplasm of other organs or systems; D48.5 Neoplasm of uncertain behavior of skin; L23.7 Allergic contact dermatitis due to plants, except food | CPT/HCPCS: 11102; 99214 ==

== ENCOUNTER → 2023-11-15 08:00 | Outpatient (BNVA) | payer MEDICARE, OTHER, SELFPAY | PROVIDERS: PCP Family Medicine; Visit Provider Dermatology | DX: C44.619 Basal cell carcinoma of skin of left upper limb, including shoulder (principal); L82.0 Inflamed seborrheic keratosis; L82.1 Other seborrheic keratosis; L21.8 Other seborrheic dermatitis | CPT/HCPCS: 17110; 17262; 99213 ==

== ENCOUNTER → 2024-01-14 10:36 | Outpatient (BNVA) | payer MEDICARE, OTHER, SELFPAY | PROVIDERS: PCP Family Medicine; Visit Provider Family Medicine | DX: K76.89 Other specified diseases of liver (principal); Z13.6 Encounter for screening for cardiovascular disorders; E78.5 Hyperlipidemia, unspecified; M81.0 Age-related osteoporosis without current pathological fracture; J30.2 Other seasonal allergic rhinitis; K21.9 Gastro-esophageal reflux disease without esophagitis; B44.81 Allergic bronchopulmonary aspergillosis; J47.1 Bronchiectasis with (acute) exacerbation; R53.83 Other fatigue | CPT/HCPCS: 80053; 80061; 82306; 82310; 83970; 84443; 85025 ==

== ENCOUNTER 2024-02-08 13:52 | Outpatient (CLI) | payer MEDICARE, OTHER, SELFPAY ==
--- NOTE | 2024-02-08 14:30 | XR_ITS ---
WS: [email or web address] SCREENING DEXA SCAN [facility], CLINICAL INFORMATION: Osteoporosis COMPARISON: 2020 FINDINGS: The L1-L4 bone mineral density measures 0.797 g/cm2. This corresponds to a T score score of -3.2 and Z score of -1.3. Left femoral neck bone mineral density measures 0.808 g/cm2. This corresponds to a T score of -1.6 an d Z score of 0.2. Right femoral neck bone mineral density measures 0.823 g/cm2. This corresponds to a T score -1.5of an d Z score of 0.3. Mean femoral neck bone mineral density measures 0.815 g/cm2. This corresponds to a T score of -1.5 an d Z score of 0.3. XR/XR DEXA axial skeleton* [id number] IMPRESSION: Osteoporosis lumbar spine. Osteopenia femoral necks. Patient's FRAX calculated 10 year probability for major osteoporotic fracture i s 11.6% and osteoporotic hip fracture is 2.5%. Bone mineral density lumbar spine decreased -5.5% Bone mineral density femoral necks increased 1.5%
== END 2024-02-08 13:53 | disposition home or self-care (01) ==
LOC: RAD 13:52
PROVIDERS: PCP Family Medicine; Visit Provider Family Medicine
DX: Z13.820 Encounter for screening for osteoporosis (principal); M81.0 Age-related osteoporosis without current pathological fracture; M85.80 Other specified disorders of bone density and structure, unspecified site
CPT/HCPCS: 77080

== ENCOUNTER 2024-03-07 09:56 | Oncology outpatient (recurring) (ONCR) | payer MEDICARE, OTHER, SELFPAY ==
[2024-03-07] MEDS: denosumab 60 mg SDV SUBCUT (10:09)
[2024-03-07 10:12] VITALS: BP 108/65; PULSE 68; RESP 16; TEMP 36.8; O2SAT 98
== END 2024-03-29 23:59 | disposition home or self-care (01) ==
LOC: ONCMED 09:56
PROVIDERS: PCP Family Medicine; Visit Provider Family Medicine
DX: M81.0 Age-related osteoporosis without current pathological fracture (principal); Z79.899 Other long term (current) drug therapy
CPT/HCPCS: 96372; J0897

== ENCOUNTER → 2024-05-01 11:11 | Outpatient (BNVA) | payer MEDICARE, OTHER, SELFPAY | PROVIDERS: PCP Family Medicine; Visit Provider Nurse Practitioner Family | DX: L81.4 Other melanin hyperpigmentation (principal); L57.8 Other skin changes due to chronic exposure to nonionizing radiation; D22.39 Melanocytic nevi of other parts of face; Z08 Encounter for follow-up examination after completed treatment for malignant neoplasm; Z85.828 Personal history of other malignant neoplasm of skin | CPT/HCPCS: 11102; 17000; 99213 ==

== ENCOUNTER 2024-08-12 14:19 | Outpatient (CLI) | payer MEDICARE, OTHER, SELFPAY ==
--- NOTE | 2024-08-12 14:24 | XRR_ITS ---
PROCEDURE INFORMATION: Exam: XR Thoracic Spine Exam date and time: 08/12/2024 2:43 PM Age: 74 years old Clinical indication: Pain in thoracic spine; Additional info: Back pain; Scoliosis TECHNIQUE: Imaging protocol: Radiologic exam of the thoracic spine. Views: 3 views. COMPARISON: CT chest wo con [id number] 03/28/2023 2:24 PM FINDINGS: Bones/joints: There is a sigmoid type scoliotic deformity involving the thoracic spine. The upper thoracic spine demonstrates convexity to the right with an apex at the C6-C7 level. The lower thoracic spine demonstrates convexity to the left with an apex at the T10-11 level. No acute fracture noted. Soft tissues: Unremarkable. XR/XR thoracic spine 3V* [id number] IMPRESSION: Thoracic scoliosis
--- NOTE | 2024-08-12 14:24 | XRR_ITS ---
PROCEDURE INFORMATION: Exam: XR Lumbosacral Spine Exam date and time: 08/12/2024 2:43 PM Age: 74 years old Clinical indication: Pain; Lumbago with sciatica; Bilateral; Prior surgery; Surgery date: 6+ months; Surgery type: Hernia; Additional info: Chronic low back pain with bilateral sciatica l>r TECHNIQUE: Imaging protocol: Radiologic exam of the lumbosacral spine. Views: 2 or 3 views. COMPARISON: CT abdomen pelvis w con* [id number] 02/16/2020 1:06 PM FINDINGS: Bones/joints: There is a grade 2 anterior spondylolisthesis at the L5-S1 level with bilateral pars defects. No other bony abnormality noted. Soft tissues: Unremarkable. XR/XR lumbar spine 2-3V* [id number] IMPRESSION: Severe spondylolisthesis with pars defects at L5-S1
== END 2024-08-12 14:20 | disposition home or self-care (01) ==
LOC: RAD 14:21
PROVIDERS: PCP Family Medicine; Visit Provider Family Medicine
DX: M41.9 Scoliosis, unspecified (principal); M54.41 Lumbago with sciatica, right side; M54.42 Lumbago with sciatica, left side; G89.29 Other chronic pain; M41.84 Other forms of scoliosis, thoracic region; M43.17 Spondylolisthesis, lumbosacral region
CPT/HCPCS: 72072; 72100

== ENCOUNTER 2024-08-28 13:51 | Outpatient (RCR) | payer MEDICARE, OTHER, SELFPAY | END 2024-09-27 23:59 | disposition home or self-care (01) | LOC: SPT 13:51 | PROVIDERS: Visit Provider Family Medicine | DX: M54.31 Sciatica, right side (principal); M54.32 Sciatica, left side; G89.29 Other chronic pain; M41.9 Scoliosis, unspecified | CPT/HCPCS: 97110; 97161 ==

== ENCOUNTER 2024-09-17 13:20 | Outpatient (CLI) | payer MEDICARE, OTHER, SELFPAY ==
--- NOTE | 2024-09-17 13:30 | MM_ITS ---
WS: [email or web address] BILATERAL 3D TOMOSYNTHESIS DIGITAL SCREENING MAMMOGRAPHY WITH CAD CLINICAL INFORMATION: SCREENING HISTORY: Screening mammogram. No current complaints. COMPARISON: None. TECHNIQUE: Bilateral CC and MLO views. FINDINGS: The breasts are composed of heterogeneous fibroglandular density tissue, which can limit the detection of small underlying mass lesions. No suspicious mass, asymmetry, calcifications, or architectural distortion. No evidence of malignancy. Dystrophic calcifications bilaterally. Vascular calcification. MM/MM [facility] tomosynthesis [id number] IMPRESSION: DENSITY: The breasts are heterogeneously dense, which may obscure small masses. BI-RADS: 2 - Benign FOLLOW UP: 1 Year Follow-up Recommend return to annual screening mammography.
== END 2024-09-17 13:21 | disposition home or self-care (01) ==
LOC: RAD 13:22
PROVIDERS: PCP Family Medicine; Visit Provider Family Medicine
DX: Z12.31 Encounter for screening mammogram for malignant neoplasm of breast (principal); R92.333 Mammographic heterogeneous density, bilateral breasts; R92.1 Mammographic calcification found on diagnostic imaging of breast
CPT/HCPCS: 77063; 77067

== ENCOUNTER 2024-09-28 06:30 | Outpatient (RCR) | payer MEDICARE, OTHER, SELFPAY | END 2024-10-01 10:59 | disposition home or self-care (01) | LOC: SPT 06:30 | PROVIDERS: PCP Family Medicine; Visit Provider Family Medicine | DX: M54.31 Sciatica, right side (principal); M54.32 Sciatica, left side; G89.29 Other chronic pain; M41.9 Scoliosis, unspecified | CPT/HCPCS: 97530 ==

== ENCOUNTER → 2024-10-29 13:49 | Outpatient (BNVA) | payer MEDICARE, OTHER, SELFPAY | PROVIDERS: PCP Family Medicine; Visit Provider Nurse Practitioner Family | DX: L81.4 Other melanin hyperpigmentation (principal); L57.8 Other skin changes due to chronic exposure to nonionizing radiation; D22.39 Melanocytic nevi of other parts of face; L82.1 Other seborrheic keratosis; B35.3 Tinea pedis; Z08 Encounter for follow-up examination after completed treatment for malignant neoplasm; Z85.828 Personal history of other malignant neoplasm of skin; L57.0 Actinic keratosis | CPT/HCPCS: 17000; 99214 ==

== ENCOUNTER 2024-12-15 06:52 | Oncology outpatient (recurring) (ONCR) | payer MEDICARE, OTHER, SELFPAY ==
--- NOTE | 2024-12-15 07:00 | CTR_ITS ---
PROCEDURE INFORMATION: Exam: CT Chest Without Contrast; Diagnostic Exam date and time: 12/15/2024 7:10 AM Age: 74 years old Clinical indication: Cough; HX of skin cancer; Additional info: Cough x 6 wks; Bronchiectasis TECHNIQUE: Imaging protocol: Diagnostic computed tomography of the chest without contrast. Radiation optimization: All CT scans at this facility use at least one of these dose optimization techniques: automated exposure control; mA and/or kV adjustment per patient size (includes targeted exams where dose is matched to clinical indication); or iterative reconstruction. COMPARISON: CT chest wo con [id number] 03/28/2023 2:24 PM RADIATION DOSE METRICS: Total DLP (mGy-cm): 201.53 FINDINGS: Lungs: The right middle lobe remains completely atelectatic. Gas-filled bronchiectasis is present in the collapsed right middle lobe, previously demonstrating consolidation. Additional gas-filled bronchiectasis is present medially in the right upper lobe, which previously represented mucous filled, dilated bronchi. Focus of chronic lingula atelectasis now demonstrates gas-filled central bronchi. Unchanged 5 mm calcification associated with the lingula atelectasis. Unchanged small focus of bronchiectasis and calcification anteriorly in the left lower lobe and right lower lobe. A few faint, scattered ground-glass opacities have developed inferiorly in the right lower lobe. Few small scattered calcifications are again noted in the left lower lobe. Pleural spaces: Biapical pleural and parenchymal disease is again noted. No pleural effusion or pneumothorax. Heart: Normal cardiac chamber size. 2 cm focus of low density anteriorly in the right atrium. No significant coronary artery calcifications. Mediastinal space: No mediastinal mass. Lymph nodes: No lymph node enlargement. Vasculature: Unremarkable. No aortic aneurysm. Liver: Numerous hepatic cysts again noted, some of which have slightly enlarged. Bones/joints: No acute osseous abnormality. Soft tissues: Unchanged calcifications noted in the breast parenchyma bilaterally. CT/CT chest wo con [id number] IMPRESSION: 1. Focal atelectasis and bronchiectasis persists in the right middle lobe, right upper lobe, lingula and anteriorly in the lower lobes. Interval decrease in consolidation associated with the areas of bronchiectasis. 2. A small, faint areas of ground-glass density are present inferiorly in the right lower lobe. The nonspecific appearance could represent mild edema or mild chronic or acute pneumonitis. 3. Low-density projecting anteriorly of the right atrium. Although the finding can represent an artifactual appearance, thrombus is a possibility. Further assessment with contrast-enhanced chest CT or echocardiography is recommended.
== END 2024-12-28 23:59 | disposition home or self-care (01) ==
LOC: ONCMED 06:52
PROVIDERS: PCP Family Medicine; Visit Provider Family Medicine
DX: J47.1 Bronchiectasis with (acute) exacerbation (principal); J98.11 Atelectasis; R91.8 Other nonspecific abnormal finding of lung field; J98.4 Other disorders of lung; K76.89 Other specified diseases of liver; R92.1 Mammographic calcification found on diagnostic imaging of breast
CPT/HCPCS: 71250

== ENCOUNTER 2024-12-18 15:20 | Outpatient (CLI) | payer MEDICARE, OTHER, SELFPAY ==
--- NOTE | 2024-12-18 16:00 | CT_ITS ---
WS: [email or web address] CT chest w con* [id number] HISTORY: low density right atrial lesion on chest CT TECHNIQUE: Axial imaging performed through the thorax. Coronal and sagittal reformats are submitted. All CT scans at [facility] use at least one of these dose optimization techniques: automated exposure control; mA and/or kV adjustment per patient size (includes targeted exams where dose is matched to clinical indication); or iterative reconstruction. CONTRAST: Omnipaque 350; 100 mL IV. DLP: 213.87 mGy.cm COMPARISON: 12/15/2024, 03/28/2023 Lungs and central airway: Biapical pleural thickening and scarring with nodularity is stable. Subsegmental atelectasis with bronchiectasis in the lingula. Additional subsegmental atelectasis with bronchiectasis and mucous plugging at the LEFT lung base. Near complete atelectasis RIGHT middle lobe with bronchiectasis there are few additional subtle areas of bronchial thickening noted bilaterally. There is no mass or increasing size of a nodule. Pleura: Normal. No pleural effusion. Heart and pericardium: Mildly prominent RIGHT atrium. There is mixing of blood within the atrium with the contrast. No obvious thrombus is identified. This area corresponds to the previously described possible mass or thrombus on a recent chest CT. This area is the confluence of the IVC and SVC. No convincing evidence for thrombus by CT. Mediastinum and ariana: No mediastinum or hilar adenopathy. Vessels: Mild pulmonary artery dilatation. Atherosclerosis aorta with no aneurysm. Chest wall and lower neck: No soft tissue masses. Upper abdomen: Fluid within the distal esophagus is probably from reflux disease. Numerous hepatic cysts. The largest hepatic cyst 5.1 x 3.9 cm. There are additional too small to characterize hypodensities within the liver also. No adrenal mass. Osseous structures: Scoliosis thoracic spine. CT/CT chest w con* [id number] IMPRESSION: 1. Area of low-attenuation in the RIGHT atrium is reidentified but not as obvi ous and probably represents admixing of blood from the IVC. There is mild enlar gement of the RIGHT atrium. For completeness sake this can be evaluated by echo cardiogram. 2. Bronchiectasis with associated atelectasis in the lingula, RIGHT middle lob e and LEFT lower lobes. 3. No pneumonia. 4. Hepatic cysts.
[2024-12-18 16:01] LABS: Blood Urea Nitrogen 16 mg/dL (8-23)
[2024-12-18] MEDS: iohexol 350 mg/mL 500 mL Btl (per mL) IV (16:19)
== END 2024-12-18 15:21 | disposition home or self-care (01) ==
LOC: RAD 15:21
PROVIDERS: PCP Family Medicine; Visit Provider Family Medicine
DX: I51.89 Other ill-defined heart diseases (principal); I51.7 Cardiomegaly; J47.9 Bronchiectasis, uncomplicated
CPT/HCPCS: 71260; 82565; 84520

== ENCOUNTER 2024-12-26 09:36 | Outpatient (CLI) | payer MEDICARE, OTHER, SELFPAY ==
--- NOTE | 2024-12-26 10:00 | USCV_ITS ---
Ana Jama Age: 74 Gender: F : 1950 Exam Date: 12/26/2024 10:08 Ordering Phys: Yara Rajan MD Technologist: VARSHA Exam Location: [facility] – [place] Indication: Right atrial mass on CT BP: 110 / 70 HR: 57 Rhythm: Sinus Technical Quality: Adequate MEASUREMENTS (Male / Female) Normal Values 2D ECHO LV Diastolic Diameter PLAX 3.9 cm 4.2 - 5.9 / 3.9 - 5.3 cm IVS Diastolic Thickness 0.9 cm 0.6 - 1.0 / 0.6 - 0.9 cm IVS Systolic Thickness 1.2 cm LVPW Diastolic Thickness 1.0 cm 0.6 - 1.0 / 0.6 - 0.9 cm LVPW Systolic Thickness 1.6 cm LVOT Diameter 2.1 cm LV Ejection Fraction 2D Teich 57.6 % LV Ejection Fraction MOD 4C 65.6 % LV Ejection Fraction MOD 2C 64.6 % LV Ejection Fraction 2C AL 65.2 % LA Diameter 2.9 cm RA Systolic Volume 4C AL 26.6 ml RA Systolic Volume 4C MOD 25.7 ml LA Sys Volume AL 29.3 cm cubed LA Sys Volume Index AL 17.9 cm cubed/m squared Aorta at Sinotubular Diameter 2.8 cm IVC Diameter 1.9 cm M-MODE LA Ao Ratio MM 1.1 AV Cusp Separation MM 1.8 cm DOPPLER AV Peak Velocity 99.0 cm/s LVOT Peak Velocity 93.0 cm/s AV Area Cont Eq vti 3.0 cm squared AV Area Cont Eq pk 3.1 cm squared MV Peak Velocity 64.0 cm/s MV Area PHT 2.7 cm squared Mitral E to A Ratio 0.7 TR Peak Velocity 98.0 cm/s TR Peak Gradient 3.8 mmHg TV Peak E Velocity 59.0 cm/s PV Peak Velocity 91.0 cm/s FINDINGS Left Ventricle Normal left ventricular size, systolic function and wall thickness, with no regional wall motion abnormalities. Left ventricular ejection fraction is 65%. Normal diastolic function. Right Ventricle Normal right ventricular size and systolic function. Normal right ventricular systolic function. Right Atrium Normal right atrial size. Thick linear structure seen in the right atrium that spans from the base of the tricuspid valve towards the inferior vena cava, measuring approximately 3.3 cm x 0.8 cm, though not fully visualized. This finding is most likely a normal structure, either a pectinate muscle or trabeculation. For better visualization, recommend transesophageal echocardiogram if clinically appropriate. Left Atrium Normal left atrial size. Mitral Valve Mild mitral valve regurgitation. Aortic Valve Structurally normal trileaflet aortic valve. No aortic valve stenosis. Trace aortic valve regurgitation. Tricuspid Valve Trace tricuspid valve regurgitation. Pulmonic Valve Mild pulmonary valve regurgitation. No pulmonary valve stenosis. Pericardium No pericardial effusion. Aorta Normal size aortic root and proximal ascending aorta. IVC Normal inferior vena cava. CONCLUSIONS 1. Normal left ventricular size and systolic function, EF 65% 2. Normal right ventricular size and systolic function 3. No significant valvular abnormalities. 4. Thick linear structure seen in the right atrium that spans from the base of the tricuspid valve towards the inferior vena cava, measuring approximately 3.3 cm x 0.8 cm, though not fully visualized. This finding is most likely a normal structure, either a pectinate muscle or trabeculation. For better visualization, recommend transesophageal echocardiogram if clinically appropriate. Deejay Beltre MD, FACC (Electronically Signed) Final Date: 26 December 2024 19:45 S
== END 2024-12-26 09:37 | disposition home or self-care (01) ==
LOC: RAD 09:37
PROVIDERS: PCP Family Medicine; Visit Provider Family Medicine
DX: I51.89 Other ill-defined heart diseases (principal); R93.1 Abnormal findings on diagnostic imaging of heart and coronary circulation; I34.0 Nonrheumatic mitral (valve) insufficiency; I37.1 Nonrheumatic pulmonary valve insufficiency
CPT/HCPCS: 93306

== ENCOUNTER → 2025-01-16 11:56 | Outpatient (BNVA) | payer MEDICARE, OTHER, SELFPAY | PROVIDERS: PCP Family Medicine; Visit Provider Family Medicine | DX: Z11.59 Encounter for screening for other viral diseases (principal); E78.00 Pure hypercholesterolemia, unspecified; M81.0 Age-related osteoporosis without current pathological fracture; I51.89 Other ill-defined heart diseases; K21.9 Gastro-esophageal reflux disease without esophagitis; J47.1 Bronchiectasis with (acute) exacerbation | CPT/HCPCS: 80053; 80061; 85025; 86803 ==

== ENCOUNTER → 2025-01-20 11:06 | Outpatient (BNVA) | payer MEDICARE, OTHER, SELFPAY | PROVIDERS: PCP Family Medicine; Visit Provider Internal Medicine | DX: J47.9 Bronchiectasis, uncomplicated (principal) | CPT/HCPCS: 99204; 99214 ==

== ENCOUNTER 2025-01-21 11:04 | Oncology outpatient (recurring) (ONCR) | payer MEDICARE, OTHER, SELFPAY | END 2025-01-27 23:59 | disposition home or self-care (01) | PROVIDERS: PCP Family Medicine; Visit Provider Family Medicine | DX: J47.9 Bronchiectasis, uncomplicated (principal); Z01.89 Encounter for other specified special examinations | CPT/HCPCS: 87070; 87205 ==

== ENCOUNTER → 2025-02-19 09:15 | Outpatient (BNVA) | payer MEDICARE, OTHER, SELFPAY | PROVIDERS: PCP Family Medicine; Visit Provider Internal Medicine | DX: J47.9 Bronchiectasis, uncomplicated (principal); B44.81 Allergic bronchopulmonary aspergillosis; Z71.85 Encounter for immunization safety counseling | CPT/HCPCS: 99213; Q3014 ==

== ENCOUNTER → 2025-02-26 14:52 | Outpatient (BNVA) | payer MEDICARE, OTHER, SELFPAY | PROVIDERS: Absent Provider Internal Medicine Cardiovascular Disease; PCP Family Medicine; Referring Provider Family Medicine; Visit Provider Internal Medicine Cardiovascular Disease | DX: I44.4 Left anterior fascicular block (principal); R07.9 Chest pain, unspecified | CPT/HCPCS: 93005 ==

== ENCOUNTER 2025-04-01 10:59 | Day surgery (SDC) | payer MEDICARE, OTHER, SELFPAY ==
[2025-04-01 11:17] VITALS: BP 116/75; PULSE 75; RESP 18; TEMP 36.7; O2SAT 97; BMI 23.7
--- NOTE | 2025-04-01 11:55 | USCV_ITS ---
Ana Jama Age: 75 Gender: F : 1950 Exam Date: 04/01/2025 12:19 Ordering Phys: Alana Drake MD ([email or web address]) Technologist: [place] [facility] [place]: ? lt atrial mass BP: / HR: Rhythm: Sinus Technical Quality: Adequate MEASUREMENTS (Male / Female) Normal Values Medications Patient given IV sedation by anesthesia service, for details please refer to the anesthesia report. Complications None. Proc. Components The patient was brought to the PAMELA examination room in a fasting state after obtaining an informed consent. The PAMELA probe was passed into the posterior pharynx , mid-esophagus, distal esophagus, and gastric fundus. PAMELA was performed at multiple levels. The patient tolerated the procedure well and there were no complications. FINDINGS Left Ventricle Normal left ventricular size, systolic function and wall thickness with no regional wall motion abnormality. Left ventricular ejection fraction is 55 %. Normal left ventricular diastolic function. Right Ventricle Normal right ventricular size and systolic function. Right Atrium Normal right atrial size. There appeared to be movable echogenic shadow at the entrance of the IVC could be Chiari network, eustachian valve or tirso terminalis Left Atrium Normal left atrial size. No PFO or intracardiac shunt noted through color Doppler or bubble study IA Septum Normal appearance of the interatrial septum. LA Appendage Normal left atrial appendage size. Normal emptying velocity. No thrombus. Mitral Valve Normal mitral valve structure. No mitral valve stenosis or regurgitation. Aortic Valve Normal aortic valve structure. No aortic valve stenosis or regurgitation. Tricuspid Valve Normal tricuspid valve structure. No tricuspid valve stenosis or regurgitation. Normal pulmonary pressure. Pulmonic Valve Normal pulmonic valve structure. No pulmonic valve stenosis or regurgitation. Pericardium No pericardial effusion. Aorta Normal diameter of the aortic root and ascending thoracic aorta. CONCLUSIONS Normal left ventricular size, systolic function and wall thickness with no regional wall motion abnormality. Left ventricular ejection fraction is 55 %. Normal left ventricular diastolic function. Normal right atrial size. There appeared to be movable echogenic shadow at the entrance of the IVC could be Chiari network, eustachian valve or tirso terminalis Normal left atrial size. No PFO or intracardiac shunt noted through color Doppler or bubble study Normal right atrial size. There appeared to be movable echogenic shadow at the entrance of the IVC could be Chiari network, eustachian valve or tirso terminalis There is no pericardial effusion. Alana Drake MD (Electronically Signed) Final Date: 06 April 2025 12:43 S
--- NOTE | 2025-04-01 12:16 | W.PM.OPSFHP ---
Same Day Surgery H&P Indication for Procedure/HPI DATE OF PROCEDURE: April 01, 2025 CHIEF COMPLAINT/INDICATIONFOR SURGICAL PROCEDURE: Transesophageal echocardiogram is planned for intracardiac mass evaluation PREOP DIAGNOSIS: As above PLANNED PROCEDURE: Operation Date: 04/01/25 12:00 Proposed Procedures p PAMELA(Not Applicable) - Alana Drake MD 75-year-old female noted to have linear mass in the right atrium. It is the reason the patient has been scheduled for transesophageal echocardiogram to further investigate and assess the nature of it. Medications/Allergies* Home Medications ?Medication ?Instructions ?Recorded ?Confirmed ?Type albuterol sulfate 2.5 mg/3 mL 2.5 mg inhalation Q6H PRN 07/17/22 04/01/25 History (0.083 %) solution for nebulization shortness of breath or wheezing calcium carbonate (Calcium 500) 1,000 mg PO DAILY 07/17/22 04/01/25 History Mucinex 400 mg PO DAILY 03/30/25 04/01/25 History famotidine 20 mg tablet 20 mg PO DAILY 03/30/25 04/01/25 History Allergies/Adverse Reactions Allergy/AdvReac Type Severity Reaction Status Date / Time naproxen (From Naprosyn) Allergy rash Verified 04/01/25 11:11 Sulfa (Sulfonamide Allergy rash Verified 04/01/25 11:11 Antibiotics) Current Medications: Generic Name Dose Route Start Last Admin Trade Name Freq PRN Reason Stop Dose Admin Sodium Chloride 1,000 mls @ 15 mls/hr 04/01/25 11:06 04/01/25 11:27 Sodium Chloride 0.9% IV 04/02/25 11:05 15 mls/hr .Q24H PRN Administration COLONOSCOPY FLUIDS Pertinent History/Comorbid Conditions* Medical History (Updated 03/02/25 @ 19:04 by Mary Cain) 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 Solis and Dr. Zuniga; if sputum not clearing with abx then get sputum culture Osteoporosis She was on Fosomax for 10 years; then off; started Prolia 02/20 but she thinks it is causing back pain so not going to continue; shared decision making--will start evista--will want to do DEXA October 2025 Surgical History (Updated 01/14/24 @ 10:20 by Yara Rajan MD) Hx of cataract removal with insertion of prosthetic lens bilateral History of femoral hernia repair 10/02/22 bilateral H/O esophagogastroduodenoscopy (04/14/21) Status post colonoscopy (04/14/21) H/O eye surgery Bilateral - for narrow angle glaucoma History of tonsillectomy History of tubal ligation H/O umbilical hernia repair H/O: hysterectomy Partial - not due to cancer; done for prolapse Family History (Updated 01/14/24 @ 10:20 by Yara Rajan MD) Family/Other Family/Other Father Congestive heart failure (CHF) Mother Dementia Mother Hypothyroidism Mother Rheumatic fever Family/Other Lung disease Father Cancer Father stomach Family/Other stomach and colon Family/Other colon Family/Other esophageal Family/Other breast cancer Family/Other colon Family/Other ovarian cancer Stroke Father Social History Smoking and tobacco/nicotine status: never used tobacco/nicotine Second hand smoke exposure: No (had been around smoke until 29) Alcohol intake: never Substance/Drug Use: never Adopted: No Caregiver/support person: No Lives independently: Yes Household members: none Housing: House Marital status: / Number of children: 2 Highest education level completed: GED or Equivalent service: No Current occupational status: retired 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 Patient has been explained all risk-benefit and alternative for the procedure patient would like to proceed with it. For propofol administration see anesthesia note Coding Level of Care Code Acute Code for Chg Fwd
--- NOTE | 2025-04-01 12:19 | ANES.PREANE2 ---
Pre-Anesthetic Assessment Height/Weight: Height 1.6 m Weight 60.781 kg Temp Pulse Resp BP Pulse Ox O2 Del Method 98.0 F 75 18 116/75 97 Room Air 04/01/25 11:17 04/01/25 11:17 04/01/25 11:17 04/01/25 11:17 04/01/25 11:17 04/01/25 11:17 Preop Diagnosis: As above Operation Date: 04/01/25 12:00 Proposed Procedures p PAMELA(Not Applicable) - Alana Drake MD Familial anesthetic complications: none Was Beta Anabel taken within 24 hours: N/A Was Clonidine taken within 24 hours: N/A Last intake: Intake Last Liquid Date 03/31/25 Last Liquid Time 22:00 Last Solid Date 03/31/25 Last Solid Time 20:00 Social No alcohol and No tobacco Exam alert, oriented x 3 and regular rate & rhythm Airway Cervical ROM: within normal limits Mallampati: Class II Dentition: full Pulmonary Bronchiectasis CV/HEM None reported None reported Hepatic None reported GI Gastroesophageal Reflux Disease Metabolic None reported Musc/skel None reported Neuropsych None reported Anesthetic Plan ASA status: 3 Anesthesia: MAC Risk of > 500 ml blood loss (7ml/kg in children): No Medications/Allergies Home Medications ?Medication ?Instructions ?Recorded ?Confirmed ?Last Taken ?Type cholecalciferol (vitamin D3) 125 125 mcg PO DAILY 30 days #30 caps 03/30/21 04/01/25 03/31/25 Rx mcg (5,000 unit) capsule albuterol sulfate 2.5 mg/3 mL 2.5 mg inhalation Q6H PRN 07/17/22 04/01/25 09/06/22 History (0.083 %) solution for nebulization shortness of breath or wheezing calcium carbonate (Calcium 500) 1,000 mg PO DAILY 07/17/22 04/01/25 03/31/25 History terbinafine HCl 250 mg tablet 250 mg PO DAILY #90 tabs 08/12/24 04/01/25 03/29/25 Rx albuterol sulfate 90 mcg/actuation 2 puff inhalation Q6H PRN 01/16/25 04/01/25 Unknown Rx aerosol inhaler shortness of breath or wheezing #8.5 grams azithromycin 250 mg tablet 250 mg PO DAILY 30 days #30 tabs 01/20/25 04/01/25 03/31/25 Rx nebulizer #1 ea 01/20/25 03/09/25 Unknown Rx arformoterol 15 mcg/2 mL solution 2 ml inhalation Q12H #120 mL 01/27/25 04/01/25 04/01/25 Rx for nebulization (Brovana) budesonide 0.5 mg/2 mL suspension 0.5 mg (2 mL) inhalation BID #120 02/19/25 04/01/25 04/01/25 Rx for nebulization (Pulmicort) mL Mucinex 400 mg PO DAILY 03/30/25 04/01/25 03/31/25 History famotidine 20 mg tablet 20 mg PO DAILY 03/30/25 04/01/25 03/30/25 History Allergies Allergy/AdvReac Type Severity Reaction Status Date / Time naproxen (From Naprosyn) Allergy rash Verified 04/01/25 11:11 Sulfa (Sulfonamide Allergy rash Verified 04/01/25 11:11 Antibiotics) Current Medications Generic Name Dose Route Start Last Admin Trade Name Freq PRN Reason Stop Dose Admin Sodium Chloride 1,000 mls @ 15 mls/hr 04/01/25 11:06 04/01/25 11:27 Sodium Chloride 0.9% IV 04/02/25 11:05 15 mls/hr .Q24H PRN Administration COLONOSCOPY FLUIDS PFSH Anesthesia Medical History (Updated 03/02/25 @ 19:04 by Mary Cain) 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 Solis and Dr. Zuniga; if sputum not clearing with abx then get sputum culture Osteoporosis She was on Fosomax for 10 years; then off; started Prolia 02/20 but she thinks it is causing back pain so not going to continue; shared decision making--will start evista--will want to do DEXA October 2025 Surgical History Hx of cataract removal with insertion of prosthetic lens bilateral History of femoral hernia repair 10/02/22 bilateral H/O esophagogastroduodenoscopy (04/14/21) Status post colonoscopy (04/14/21) H/O eye surgery Bilateral - for narrow angle glaucoma History of tonsillectomy History of tubal ligation H/O umbilical hernia repair H/O: hysterectomy Partial - not due to cancer; done for prolapse Family History Father Stroke Lung disease Cancer stomach Family/Other Cancer stomach and colon Family/Other Cancer colon Family/Other Cancer esophageal Mother Dementia Congestive heart failure (CHF) Hypothyroidism Family/Other Cancer breast cancer Family/Other Cancer colon Family/Other Cancer ovarian cancer Family/Other Rheumatic fever Brother No problems noted. 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
[2025-04-01 12:44] VITALS: BP 99/56; PULSE 59; RESP 16; TEMP 36.2; O2SAT 98
[2025-04-01 13:08] VITALS: BP 96/55; PULSE 56; RESP 18; O2SAT 98
--- NOTE | 2025-04-01 13:36 | ANE.PACU2 ---
Inpatient post-anesthesia follow up: Airway intact: Yes Vital signs: Temperature 97.1 F Pulse Rate 56 Respiratory Rate 18 Blood Pressure 96/55 Pulse Oximetry 98 Oxygen Delivery Me thod Room Air Oxygen Flow Rate 10 Fraction of Inspir ed Oxygen Hydration adequate: Yes Nausea and vomiting: No Pain level: 1 Mental status: Baseline
[2025-04-01 13:40] VITALS: BP 97/57; PULSE 57; RESP 18; O2SAT 100
== END 2025-04-01 13:50 | disposition home or self-care (01) ==
PROVIDERS: PCP Family Medicine; Visit Provider Internal Medicine Cardiovascular Disease
PROC: (CPT 93312; principal; 2025-04-01 12:00)
DX: D15.1 Benign neoplasm of heart (principal); K21.9 Gastro-esophageal reflux disease without esophagitis; J47.9 Bronchiectasis, uncomplicated
CPT/HCPCS: 93312; 93320; 93325; J2704; J7030